=== PATIENT | male | born 1985 | race African-American/Black ===

== ENCOUNTER 2020-06-19 15:07 | Outpatient (CLI) | payer OTHER, SELFPAY ==
--- NOTE | ~2020-06-19 | XR_ITS ---
EXAMINATION: XR tibia fibula RT 2V DATE: 06/19/2020 15:46 INDICATION: Medial right ankle and lower leg pain with standing TECHNIQUE: Anteroposterior and lateral views of the right tibia and fibula were obtained. COMPARISON: None. FINDINGS: Alignment is normal. No fracture. Joint spaces are normal. Soft tissues are unremarkable. No right an kle joint effusion. IMPRESSION: 1. Negative right tibia/fibula radiographs. Reviewed, dictated and finalized at location B.
--- NOTE | ~2020-06-19 | XR_ITS ---
EXAMINATION: XR chest 2V EXAM DATE: 06/19/2020 15:45 INDICATION: Smoking. TECHNIQUE: Frontal and lateral projections of the chest obtained and reviewed. Comparison is made to prior examination from 06/12/2018. FINDINGS: Mild hyperinflation. The lungs are clear. There are no pleural effusions. The cardiomedi astinal silhouette is within normal limits. There is no pneumothorax suspected. The bones and soft tissues are unremarkable. IMPRESSION: Mild hyperinflation. Reviewed, dictated and finalized at location A. IMPRESSION: Mild hyperinflation.
--- NOTE | ~2020-06-19 | XR_ITS ---
EXAMINATION: XR lumbar spine 2-3V EXAM DATE: 06/19/2020 15:46 INDICATION: Low back pain. TECHNIQUE: Lumber spine frontal, lateral, lateral L5-S1 projections for interpretation. There is no prior study for comparison. FINDINGS: The vertebral bodies are aligned in the AP dimension. Vertebral body and disc heights are well-maintained. Facet joints are unremarkable. Sacrum, sacroiliac joints, sacral arcuate lines are i ntact. Paraspinal soft tissue is unremarkable. IMPRESSION: Normal lumbar x-ray. Reviewed, dictated and finalized at location A. IMPRESSION: Normal lumbar x-ray.
== END 2020-06-19 15:08 | disposition home or self-care (01) ==
PROVIDERS: PCP Emergency Medicine; Visit Provider Emergency Medicine
DX: M54.5 Low back pain (principal); M79.604 Pain in right leg; Z72.0 Tobacco use
CPT/HCPCS: 71046; 72100; 73590

== ENCOUNTER 2020-08-24 14:52 | Outpatient (CLI) | payer OTHER, SELFPAY ==
--- NOTE | ~2020-08-24 | XR_ITS ---
XR pelvis 1-2V DATE: 08/24/2020 15:11 INDICATION: Generalized pelvic pain for 3 months. No injury. TECHNIQUE: AP pelvis COMPARISON: None FINDINGS: The pubic symphysis and sacroiliac joints are intact. No pelvic fracture or bone destructio n. Hip joint spaces appear symmetric and well preserved. Some benign small cystic areas are noted rajeev r the junctions of the femoral heads and necks bilaterally. IMPRESSION: No significant abnormality of the pelvis Reviewed, dictated and finalized at location B. [employer]
== END 2020-08-24 14:53 | disposition home or self-care (01) ==
PROVIDERS: PCP Emergency Medicine; Visit Provider Emergency Medicine
DX: R10.2 Pelvic and perineal pain (principal)
CPT/HCPCS: 72170

== ENCOUNTER 2025-08-16 10:58 | Outpatient (CLI) | payer OTHER, SELFPAY ==
--- NOTE | ~2025-08-16 | MR_ITS ---
EXAMINATION: MR shoulder RT wo con DATE: 08/16/2025 11:36 INDICATION: Right shoulder pain TECHNIQUE: Magnetic resonance imaging (MRI) of the right shoulder was performed without intravenous contrast. Sequences included axial PD-weighted FS FSE, coronal oblique PD-weighted FS FSE, coronal oblique T2-weighted FS FSE, sagittal PD-weighted FS FSE, and sagittal T1-weighted SE. COMPARISON: None. FINDINGS: Coracoacromial arch: The acromion undersurface is curved in morphology (type II). The coracoacromial ligament is normal. Acromioclavicular joint is normal. Rotator cuff: The supraspinatus, infraspinatus and teres minor tendons are normal. Mild subscapularis tendinopathy without tear. Normal rotator cuff muscle bulk and signal. Biceps tendon, glenoid labrum and glenohumeral cartilage: Long head of the biceps tendon is normal. Normal sublabral sulcus at the superior labrum extending posteriorly from a normal anterosuperior sublabral foramen. Glenoid labrum is otherwise normal with no tear. Glenohumeral cartilage is normal. Fluid: Physiologic amount of fluid in the glenohumeral joint and biceps tendon sheath. No loose osteochondral bodies. Small amount of fluid in the subacromial/subdeltoid bursa consistent with mild bursitis. Bones: Normal marrow signal with no edema, fracture or abnormal marrow replacing process. IMPRESSION: 1. Mild subscapularis tendinopathy without tear. 2. Mild subacromial/subdeltoid bursitis. Reviewed, dictated and finalized at location A. [employer]
== END 2025-08-16 10:59 | disposition home or self-care (01) ==
PROVIDERS: PCP Nurse Practitioner Family; Visit Provider Nurse Practitioner Family
DX: R29.898 Other symptoms and signs involving the musculoskeletal system (principal); S49.91XA Unspecified injury of right shoulder and upper arm, initial encounter; M75.51 Bursitis of right shoulder
CPT/HCPCS: 73221